=== PATIENT | male | born 1985 | race African-American/Black ===

== ENCOUNTER 2017-06-17 18:56 | Observation (INO) | payer BC ==
[~2017-06-17 18:56] MED LIST: ISOVUE-370 76%-LOCM 1 ML ONE
[2017-06-17] MEDS ORDERED: Adacel (T-DAP) 0.5 ML VIAL ONE (19:07)
[2017-06-17] MEDS ORDERED: Fentanyl 100 MCG/2 ML VIAL ONE (19:09)
[2017-06-17 19:16] LABS: #Basophils 0.1 thou/uL (0.0-0.2); #Eosinphils 0.3 thou/uL (0.0-0.7); #Lymphocytes 3.6 thou/uL (1.20-3.40); #Monocytes 0.7 thou/uL (0.11-0.59); #Neutrophils 3.1 thou/uL (1.40-6.50); %Basophils 1.2 % (0.0-1.0); %Eosinophils 3.4 % (0.0-10.0); %Lymphocytes 46.1 % (21.0-51.0); %Monocytes 9.5 % (0.0-10.0); %Neutrophils 39.9 % (42.0-75.0); Hemoglobin 14.8 g/dL (14.0-18.0); Mean Corpuscular HGB CONC 33.3 g/dL (32.0-36.0); Mean Corpuscular Hemoglobin 31.1 pg (27.0-31.0); Mean Corpuscular Volume 93.4 fl (80.0-94.0); Mean Platelet Volume 7.8 fL (7.4-10.4); Platelet Count 164 thou/uL (130-400); RBC Distribution Width 12.1 % (11.5-14.5); Red Blood Cell (RBC) Count 4.75 mill/uL (4.70-6.10); White Blood Cell (WBC) Count 7.7 thou/uL (4.8-10.8)
[2017-06-17 19:21] LABS: PTT 27.4 SEC (22.9-36.1)
[2017-06-17 19:22] LABS: Prothrombin Time 13.7 SEC (12.0-14.7)
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
[2017-06-17 19:38] LABS: ALT (SGPT) 24 U/L (8-55); AST (SGOT) 27 U/L (5-34); Albumin 4.1 g/dL (3.5-5.0); Alcohol Less than 10 mg/dL (Less than 10); Alkaline Phosphatase 80 U/L (40-150); Anion Gap 13 mmol/L (10-20); BUN (Urea Nitrogen) 13 mg/dL (8.9-20.6); Bilirubin, Total 0.2 mg/dL (0.2-1.2); Calc. Creatinine Clearance 0 mL/min (70-130); Calcium 9.1 mg/dL (7.8-10.44); Carbon Dioxide 23 mmol/L (22-29); Chloride 106 mmol/L (98-107); Estimated GFR-MDRD Greater than 90; Globulin 2.8 g/dL (2.4-3.5); Glucose 91 mg/dL (70-105); Lipase 25 U/L (8-78); Potassium 3.9 mmol/L (3.5-5.1); Protein, Total 6.9 g/dL (6.0-8.3); Sodium 138 mmol/L (136-145)
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
[2017-06-17] MEDS ORDERED: Ibuprofen 800 MG TAB PO PRN (21:37)
[2017-06-17] MEDS ORDERED: Dextrose 5% in Water 1,000 ML IV PRN (21:38)
[2017-06-17] MEDS ORDERED: Ondansetron ODT 4 MG TAB PO PRN (21:38)
[2017-06-17] MEDS ORDERED: Dextrose 50% Abboject 50 ML SYRINGE SLOW IVP PRN (21:38)
[2017-06-17] MEDS ORDERED: Ondansetron HCl/PF 4 MG/2 ML Vial IVP PRN (21:38)
[2017-06-17] MEDS ORDERED: Sodium Chloride 0.9% 1,000 ML IV SCH (21:45)
[2017-06-17] MEDS ORDERED: Acetaminophen 500 MG TAB PO SCH (22:15)
[2017-06-18] MEDS ORDERED: Dextrose 50% Abboject 50 ML SYRINGE SLOW IVP PRN (00:11)
[2017-06-18] MEDS ORDERED: Dextrose 5% in Water 1,000 ML IV PRN (00:11)
[2017-06-18] MEDS ORDERED: Ibuprofen 800 MG TAB PO PRN (00:12)
[2017-06-18] MEDS ORDERED: Ondansetron ODT 4 MG TAB PO PRN (00:13)
[2017-06-18] MEDS ORDERED: Ondansetron HCl/PF 4 MG/2 ML Vial IVP PRN (00:13)
[2017-06-18] MEDS ORDERED: Sodium Chloride 0.9% 1,000 ML IV SCH (00:15)
[2017-06-18 00:28] VITALS: BMI 25.8
[2017-06-18] MEDS: Acetaminophen 500 MG TAB PO SCH ×2 (00:52→06:10)
[2017-06-18] MEDS ORDERED: Acetaminophen 500 MG TAB PO SCH (04:00)
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
[2017-06-18 08:13] VITALS: BP 160/88; TEMP 98.7
[2017-06-18] MEDS ORDERED: FLU VACC QS2017-18 36 mo. & older 0.5 ML SYRINGE IM ONE (09:00)
[2017-06-18] MEDS ORDERED: Famotidine 40 MG/4 ML VIAL SLOW IVP SCH ×2 (09:00)
[2017-06-18] MEDS ORDERED: Famotidine 20 MG TAB PO SCH (09:00)
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
== END 2017-06-18 10:31 | disposition home or self-care (01) ==
LOC: ERS 18:56 → SURG A 21:38 → UNDODISOB 21:56
PROVIDERS: ADMIT Surgery; ATTEND Surgery
DX: R10.9 Unspecified abdominal pain (principal); G89.11 Acute pain due to trauma; F17.290 Nicotine dependence, other tobacco product, uncomplicated; V29.40XA Motorcycle driver injured in collision with unspecified motor vehicles in traffic accident, initial encounter
CPT/HCPCS: 70450; 71260; 72125; 74177; 80053; 80307; 83690; 85025; 85610; 85730; 90471; 90715; 96361; 96374; 99406; G0378; G0390; J3010

== ENCOUNTER 2023-10-08 21:50 | Emergency (ER) | payer BC, OTHER, SELFPAY ==
[2023-10-08] MEDS ORDERED: Fioricet 325/50/40 mg Tablet ONE (22:49)
[2023-10-08 23:35] LABS: Influenza A by NAA Not Detected (NotDetected); Influenza B by NAA Not Detected (NotDetected); SARS-CoV-2 NAA Rapid Test DETECTED (NotDetected)
== END 2023-10-08 23:55 | disposition home or self-care (01) ==
LOC: ERS 21:50
DX: U07.1 COVID-19 (principal); I10 Essential (primary) hypertension; F17.210 Nicotine dependence, cigarettes, uncomplicated; Z55.6 Problems related to health literacy
CPT/HCPCS: 87081; 87430; 99284